=== PATIENT | female | born 1935 | race Caucasian/White ===

== ENCOUNTER 2016-12-27 06:52 | Outpatient (CLI) | payer MEDICARE, BC ==
[2016-12-27 07:14] LABS: Bacteria/HPF None Seen HPF (None Seen); Bilirubin Negative (Negative); Blood, Urine Negative (Negative); Clarity Clear (Clear); Glucose, Urine (Dipstick) Negative (Negative); Leukocyte Negative (Negative); Nitrite Negative (Negative); Protein, Urine (Dipstick) Negative (Neg-Trace); RBC/HPF 0-3 HPF (0-3); Squamous Epithelial 0-3 HPF (0-3); Urobilinogen 0.2 mg/dL (0.2-1.0); WBC/HPF None Seen HPF (0-3)
[2016-12-27 07:15] LABS: Other Microscopic Description C&S SET UP
== END 2016-12-27 06:53 | disposition home or self-care (01) ==
LOC: BURMANOR 06:52
PROVIDERS: ATTEND Clinical Nurse Specialist Medical-Surgical
DX: N39.0 Urinary tract infection, site not specified (principal)
CPT/HCPCS: 81001; 87086